=== PATIENT | female | born 1965 | race Caucasian/White ===

== ENCOUNTER 2023-06-08 21:36 | Emergency (ER) | payer OTHER ==
[~2023-06-08] VITALS: Wt 91.8 kg
[2023-06-08 22:14] LABS: BASO # 0.1 10*3/uL (0.0-0.1); BASO % 0.4 % (0.0-1.0); EOS # 0.2 10*3/uL (0.0-0.4); EOS % 1.6 % (1.0-4.0); HEMATOCRIT 42.8 % (37.0-47.0); LYMPH # 2.8 10*3/uL (1.3-4.4); LYMPH % 19.5 % (27.0-41.0); MEAN CELL VOLUME 88.8 fl (81.0-99.0); MEAN CORPUSCULAR HGB 31.3 pg (27.0-31.0); MEAN CORPUSCULAR HGB CONC 35.3 g/dl (33.0-37.0); MONO # 0.7 10*3/uL (0.1-1.0); MONO % 4.5 % (3.0-9.0); NEUT # 10.6 10*3/uL (2.3-7.9); NEUT % 73.3 % (47.0-73.0); PLATELET COUNT AUTOMATED 226 10*3/uL (130-400); RED BLOOD COUNT 4.82 10*6/uL (4.10-5.10); RED CELL DISTRI WIDTH 12.7 % (0-14.5); WHITE BLOOD COUNT 14.4 10*3/uL (4.8-10.8)
[2023-06-08 22:31] LABS: ACT PARTIAL THROMBO TIME 23.7 SECONDS (20.0-32.1)
[2023-06-08 22:38] LABS: ALKALINE PHOSPHATASE 114 U/L (46-116); BUN 8 mg/dl (9-23); CHLORIDE 108 mmol/L (98-107); LIPASE 37 U/L (12-53); POTASSIUM 3.1 mmol/L (3.4-5.1); SGPT/ALT 982 U/L (5-49); TOTAL PROTEIN 6.4 gm/dL (6.0-8.0)
[2023-06-08 23:04] LABS: BILIRUBIN Negative (Negative); BLOOD 3+ (Negative); CLARITY Clear (Clear); COLOR Yellow (Yellow); GLUCOSE Negative (Negative); KETONE Trace (Negative); LEUKO ESTERASE Negative (Negative); NITRITE Negative (Negative)
[2023-06-08 23:11] LABS: URINE AMPHETAMINES Negative (1000ng/ml); URINE BARBITURATES Negative (200ng/ml); URINE BENZODIAZEPINES Negative (200ng/ml); URINE CANNABINOIDS (THC) Negative (50ng/ml); URINE COCAINE Negative (300ng/ml); URINE METHADONE Negative (300ng/ml); URINE OPIATES Negative (300ng/ml); URINE PHENCYCLIDINE Negative (25ng/ml)
[2023-06-08 23:13] LABS: BACTERIA 1+; RBC 31-40 rbc/hpf (0-2)
== END 2023-06-09 00:38 | disposition short-term general hospital (02) ==
LOC: ED 21:36 → EDBD 22:16 → ED 22:16
PROVIDERS: Internal Medicine
DX: I97.120 Postprocedural cardiac arrest following cardiac surgery (principal); I21.4 Non-ST elevation (NSTEMI) myocardial infarction; Z79.899 Other long term (current) drug therapy